=== PATIENT | female | born 1985 ===

== ENCOUNTER 2024-06-08 12:22 | Outpatient (AMB) | payer MEDICARE, SELFPAY ==
--- NOTE | 2024-06-08 12:28 | MHC.PC.OV ---
Vital Signs 06/08/24 12:36 Height 5 ft 2 in Weight 201 lb BMI 36.8 BP 132/74 Blood Pressure Location Lt brachial Position Sitting Respiration 15 Pulse 75 Pulse Source Pulse Oximeter Temp 97.8 F Temp Source Oral Pulse Oximetry (%) 99 Oxygen Delivery Method Room Air Intake Visit Reasons: est/ left ear pain/ cough Intake Note: Patient complaining about left ear since yesterday and coughing since last Wednesday. Patient son had bronchitis two weeks ago. Allergies metformin Allergy (Mild, Verified 06/08/24 12:59) states allergic reaction Medication List - Last Reconciled 06/08/24 by Marisela Judd, [employer] acetazolamide 250 mg PO BID albuterol sulfate 90 mcg/actuation 0 mcg inhalation bupropion HCl XL 300 mg PO QAM epinephrine 0.3 mL IM ONCE flunisolide 2 sprays intranasal DAILY fluoxetine 60 mg PO QAM ibuprofen 800 mg PO TID ketotifen fumarate 0.025%(0.035%) (Allergy Eye (ketotifen)) 1 drp ophthalmic (eye) BID PRN naproxen sodium 550 mg PO Q12H PRN omeprazole 10 mg PO QAM promethazine 12.5 mg RI Q4H PRN topiramate mg PO valacyclovir 1,000 mg PO DAILY Tobacco use date assessed: 06/08/24 HPI HPI Comments History of Present Illness Details 38 y/o F here today with URI complaints. coughing since wednesday left ear pain started yesterday chills off and on had a sore throat but this resolved exposed to sick child w/ similar sx home covid test negative x 3 Used mucinex, vicks throat spray, cough drops, robitussin w/ short lived relief. Denies recent travel, runny nose She has asthma and allergies, takes all meds as directed. Exam Mildly ill appearing, Awake alert NAD Sclera and conjunctiva clear bilat Nares with mucoid d/c on L, turbinates within normal limits, + sinus tenderness with palpation bilat TM intact and clear on R, bulging erythematous with loss of landmarks on the L MMM, pharynx WNL RRR LS ins/exp wheeze throughout, hacking cough, no resp distress Plan Treat otitis media of the left ear with Augmentin. One tab 2 times per day for 7 days. Patient reports that she gets vaginal yeast infections while taking Augmentin therefore I have sent in a prescription for Diflucan for her to take once the therapy is complete if she develops vaginal yeast. Advised take the medication with food to prevent GI upset. She also has asthma exacerbation. I have advised her to continue her asthma remedies I have also prescribed prednisone 50 mg x 5 days. I do recommend that she have a clinical evaluation in 1 week to ensure follow up. She wishes to follow up with the primary care provider. I have made her aware that she can stop and to hear schedule an appointment here should she need a follow up visit and not be able to see her primary care provider. This note is constructed using voice recognition software. While every effort has been made to ensure accuracy in administrative secretary, still errors may have been included Sometimes, these errors may affect the content or meaning of the given sentence . [facility] Social History Housing: House Patient Tobacco Use Status: Former Tobacco user e-Cigarette/Vaping Use: Never Used Current occupational status: unemployed and disabled Physical exam (Primary Care) Vital Signs: Last Vital Signs Temp 97.8 F 06/08/24 12:36 Pulse 75 06/08/24 12:36 Resp 15 06/08/24 12:36 BP 132/74 06/08/24 12:36 Pulse Ox 99 06/08/24 12:36 Oxygen Delivery Method Room Air 06/08/24 12:36 BMI result Body Mass Index 36.8 Tobacco/Smoking Status: Tobacco use Status Tobacco use date assessed 06/08/24 06/08/24 12:35 Patient Tobacco Use Status Former Tobacco user 06/08/24 12:29 e-Cigarette/Vaping Use Never Used 06/08/24 12:35 Assessment and Plan Assessment & Plan (1) Otitis media, left: Code(s): H66.92 - Otitis media, unspecified, left ear Qualifiers: Otitis media type: mucoid Chronicity: acute Qualified Code(s): H65.192 - Other acute nonsuppurative otitis media, left ear (2) Asthma exacerbation: Code(s): J45.901 - Unspecified asthma with (acute) exacerbation Qualifiers: Asthma severity: mild Asthma persistence: persistent Qualified Code(s): J45.31 - Mild persistent asthma with (acute) exacerbation Medications: New amoxicillin-pot clavulanate 875-125 mg 1 tab PO BID 7 days 14 tabs 0RF prednisone 50 mg PO DAILY 5 days 5 tabs 0RF fluconazole 150 mg PO DAILY 1 day 1 tab 0RF Coding Level of Care Code Est Pt Level 3 (37556) Diagnoses Acute mucoid otitis media of left ear H65.192 Otitis media type: mucoid Chronicity: acute Mild persistent asthma with exacerbation J45.31 Asthma severity: mild Asthma persistence: persistent
[2024-06-08 12:36] VITALS: BP 132/74; PULSE 75; RESP 15; TEMP 36.6; O2SAT 99; BMI 36.8
== END 2024-06-08 13:06 | disposition home or self-care (01) ==
PROVIDERS: Visit Provider Nurse Practitioner Family
DX: H65.192 Other acute nonsuppurative otitis media, left ear (principal); J45.31 Mild persistent asthma with (acute) exacerbation
CPT/HCPCS: 99213